=== PATIENT | female | born 1945 | race Caucasian/White ===

== ENCOUNTER 2020-01-03 20:18 | Emergency (ER) | payer MEDICARE, MEDICAID ==
[~2020-01-03] VITALS: Ht 162.6 cm; Wt 73.0 kg
[2020-01-04 14:30] VITALS: BP 137/84
== END 2020-01-04 14:30 | disposition home or self-care (01) ==
LOC: ER 20:18
DX: Z00.00 Encounter for general adult medical examination without abnormal findings (principal); Z59.0 Homelessness; Z86.12 Personal history of poliomyelitis; Z96.649 Presence of unspecified artificial hip joint
CPT/HCPCS: 99283

== ENCOUNTER 2020-01-05 08:26 | Emergency (ER) | payer MEDICARE, MEDICAID ==
[~2020-01-05] VITALS: Ht 157.5 cm; Wt 77.0 kg
[2020-01-05 23:30] VITALS: BP 149/89
== END 2020-01-06 16:40 | disposition home or self-care (01) ==
LOC: ER 10:56
DX: M25.552 Pain in left hip (principal); M25.551 Pain in right hip; G89.29 Other chronic pain; E11.9 Type 2 diabetes mellitus without complications
CPT/HCPCS: 72170; 82962; 99283

== ENCOUNTER 2020-01-06 19:08 | Emergency (ER) | payer MEDICARE, MEDICAID ==
[~2020-01-06] VITALS: Ht 157.5 cm; Wt 78.0 kg
[2020-01-06 19:37] VITALS: BP 150/62
[2020-01-07] MEDS ORDERED: CYCLOBENZAPRINE 10MG TABLET PO ONE
[2020-01-07] MEDS ORDERED: ACETAMINOPHEN 325MG TABLET PO ONE (00:15)
== END 2020-01-07 00:57 | disposition left against medical advice (07) ==
LOC: ER 19:08
DX: M54.2 Cervicalgia (principal); G89.29 Other chronic pain; R03.0 Elevated blood-pressure reading, without diagnosis of hypertension; E03.9 Hypothyroidism, unspecified; E11.9 Type 2 diabetes mellitus without complications; Z95.0 Presence of cardiac pacemaker
CPT/HCPCS: 99283

== ENCOUNTER 2020-01-07 16:22 | Emergency (ER) | payer MEDICARE, MEDICAID ==
[~2020-01-07] VITALS: Ht 157.5 cm; Wt 60.0 kg
[2020-01-09 01:00] VITALS: BP 147/74
== END 2020-01-09 08:58 | disposition home or self-care (01) ==
LOC: ER 16:22
DX: Z60.8 Other problems related to social environment (principal); Z75.1 Person awaiting admission to adequate facility elsewhere
CPT/HCPCS: 99285

== ENCOUNTER 2020-01-09 23:57 | Emergency (ER) | payer MEDICARE, MEDICAID | END 2020-01-10 03:40 | disposition left against medical advice (07) | LOC: ER 23:57 | DX: R51 Headache (principal); Z53.21 Procedure and treatment not carried out due to patient leaving prior to being seen by health care provider ==

== ENCOUNTER 2020-01-11 12:17 | Emergency (ER) | payer MEDICARE, MEDICAID, OTHER ==
[~2020-01-11] VITALS: Ht 157.5 cm; Wt 77.0 kg
[2020-01-11 19:43] LABS: CLARITY URINE CLEAR (CLEAR); COLOR URINE YELLOW (YELLOW); KETONES URINE TRACE (NEGATIVE); LEUKOCYTE ESTERASE URINE NEGATIVE (NEGATIVE); NITRITE URINE NEGATIVE (NEGATIVE); OCCULT BLOOD URINE NEGATIVE (NEGATIVE); PROTEIN URINE NEGATIVE (NEGATIVE); SPECIFIC GRAVITY URINE 1.012 (1.005-1.030); UROBILINOGEN URINE 0.2 E.U./dL (0.2-1.0)
[2020-01-11 20:43] LABS: *AMPHETAMINES SCREEN URINE NEGATIVE (NEGATIVE)
[2020-01-11 20:44] LABS: *BARBITURATES SCREEN URINE NEGATIVE (NEGATIVE); *BENZODIAZEPINES SCREEN URINE NEGATIVE (NEGATIVE); *COCAINE SCREEN URINE NEGATIVE (NEGATIVE); METHADONE URINE SCREEN NEGATIVE (NEGATIVE); OPIATES URINE SCREEN NEGATIVE (NEGATIVE); PHENCYCLIDINE URINE SCREEN NEGATIVE (NEGATIVE)
[2020-01-11 20:45] LABS: CANNABINOID URINE SCREEN NEGATIVE (NEGATIVE)
[2020-01-13] MEDS ORDERED: DOCUSATE SODIUM 100MG CAPSULE PO ONE (17:45)
[2020-01-16 11:30] VITALS: BP 127/67
== END 2020-01-16 12:48 | disposition home or self-care (01) ==
LOC: ER 12:17
DX: R51 Headache (principal); Z59.0 Homelessness; E11.9 Type 2 diabetes mellitus without complications; Z95.0 Presence of cardiac pacemaker; E03.9 Hypothyroidism, unspecified; Z96.649 Presence of unspecified artificial hip joint; Z88.6 Allergy status to analgesic agent; Z88.8 Allergy status to other drugs, medicaments and biological substances; Z88.1 Allergy status to other antibiotic agents
CPT/HCPCS: 71045; 80305; 81003; 82962; 93005; 99285

== ENCOUNTER 2020-01-17 14:21 | Emergency (ER) | payer MEDICARE, MEDICAID, OTHER ==
[~2020-01-17] VITALS: Ht 154.9 cm; Wt 59.0 kg
[2020-01-17] MEDS ORDERED: ACETAMINOPHEN 325MG TABLET PO ONE (19:30)
[2020-01-18 06:31] VITALS: BP 142/80
== END 2020-01-18 07:01 | disposition left against medical advice (07) ==
LOC: ER 14:21
DX: R51 Headache (principal); M54.2 Cervicalgia; Z59.0 Homelessness; E11.9 Type 2 diabetes mellitus without complications; I10 Essential (primary) hypertension; E03.9 Hypothyroidism, unspecified; Z88.1 Allergy status to other antibiotic agents; Z88.6 Allergy status to analgesic agent; Z88.8 Allergy status to other drugs, medicaments and biological substances; Z95.0 Presence of cardiac pacemaker; Z96.649 Presence of unspecified artificial hip joint
CPT/HCPCS: 99283

== ENCOUNTER 2020-01-21 03:44 | Emergency (ER) | payer MEDICARE, MEDICAID ==
[~2020-01-21] VITALS: Ht 154.9 cm; Wt 82.0 kg
[2020-01-21 04:46] VITALS: BP 139/79
== END 2020-01-21 09:06 | disposition left against medical advice (07) ==
LOC: ER 05:23
DX: Z53.21 Procedure and treatment not carried out due to patient leaving prior to being seen by health care provider (principal)

== ENCOUNTER 2020-01-21 23:16 | Emergency (ER) | payer MEDICARE, MEDICAID ==
[~2020-01-21] VITALS: Ht 160 cm; Wt 76.0 kg
[2020-01-22 07:06] VITALS: BP 132/80
== END 2020-01-22 07:07 | disposition home or self-care (01) ==
LOC: ER 23:16
DX: K59.00 Constipation, unspecified (principal); G62.9 Polyneuropathy, unspecified; Z59.0 Homelessness; E11.9 Type 2 diabetes mellitus without complications; I25.10 Atherosclerotic heart disease of native coronary artery without angina pectoris; Z76.0 Encounter for issue of repeat prescription; Z88.1 Allergy status to other antibiotic agents; Z88.8 Allergy status to other drugs, medicaments and biological substances; Z88.6 Allergy status to analgesic agent; Z88.9 Allergy status to unspecified drugs, medicaments and biological substances; Z93.0 Tracheostomy status; Z95.0 Presence of cardiac pacemaker; Z91.013 Allergy to seafood; Z98.890 Other specified postprocedural states
CPT/HCPCS: 99281

== ENCOUNTER 2020-01-22 21:48 | Emergency (ER) | payer MEDICARE, MEDICAID ==
[~2020-01-22] VITALS: Ht 154.9 cm; Wt 77.0 kg
[2020-01-23] MEDS ORDERED: ACETAMINOPHEN 325MG TABLET PO ONE (00:30)
[2020-01-24 06:30] VITALS: BP 135/80
[2020-01-25] MEDS ORDERED: RIVA10TA PO (15:58)
[2020-01-25] MEDS ORDERED: FURO-152 MT (15:58)
[2020-01-25] MEDS ORDERED: GABA-290 MT (15:58)
[2020-01-25] MEDS ORDERED: FOLI-43 MT (15:58)
[2020-01-25] MEDS ORDERED: COLC0.6C3 PO (15:58)
[2020-01-25] MEDS ORDERED: DOCU250C69 PO (15:58)
== END 2020-01-24 15:30 | disposition home or self-care (01) ==
LOC: ER 21:48
DX: G89.29 Other chronic pain (principal); I25.10 Atherosclerotic heart disease of native coronary artery without angina pectoris; E11.9 Type 2 diabetes mellitus without complications; Z88.8 Allergy status to other drugs, medicaments and biological substances; Z88.1 Allergy status to other antibiotic agents; Z88.6 Allergy status to analgesic agent; Z79.899 Other long term (current) drug therapy; Z59.0 Homelessness
CPT/HCPCS: 99283; 99285

== ENCOUNTER 2020-01-24 17:36 | Inpatient (IN) | payer MEDICARE, MEDICAID ==
[~2020-01-24] VITALS: Ht 157.5 cm; Wt 87.1 kg
[2020-01-24] MEDS ORDERED: SODIUM CHLORIDE 0.9% 1,000 ML IV ONE (17:40)
[2020-01-24 18:15] LABS: BASOPHILS % 0.4 % (0.0-2.0); EOSINOPHILS % 1.8 % (0.0-5.0); HEMATOCRIT. 40.6 % (36.0-48.0); HEMOGLOBIN. 13.8 g/dL (12.0-16.0); LYMPHOCYTES % 16.6 % (20.0-50.0); MEAN CORPUSCULAR HEMOGLOBIN 35.2 pg (28.0-32.0); MEAN CORPUSCULAR VOLUME 103.4 fL (81.0-99.0); MONOCYTES % 9.6 % (2.0-8.0); NEUTROPHILS % 71.6 % (40.0-76.0); PLATELET 290 x1000/uL (130-400); RED BLOOD CELL COUNT 3.93 mill/uL (4.2-5.4)
[2020-01-24] MEDS ORDERED: LORAZEPAM 2MG/ML CPJ IM ONE (18:15)
[2020-01-24 18:22] LABS: CHLORIDE 102 mEq/L (98-107)
[2020-01-24 18:23] LABS: CLARITY URINE CLEAR (CLEAR); COLOR URINE YELLOW (YELLOW); INR 0.9; KETONES URINE NEGATIVE (NEGATIVE); LEUKOCYTE ESTERASE URINE NEGATIVE (NEGATIVE); NITRITE URINE NEGATIVE (NEGATIVE); OCCULT BLOOD URINE NEGATIVE (NEGATIVE); PARTIAL THROMBOPLASTIN TIME 23.8 sec (23.4-31.0); PH URINE 6.5 (4.5-8.0); PROTEIN URINE NEGATIVE (NEGATIVE); PROTHROMBIN TIME 10.2 sec (9.6-11.0); SPECIFIC GRAVITY URINE 1.018 (1.005-1.030); UROBILINOGEN URINE 0.2 E.U./dL (0.2-1.0)
[2020-01-24 18:26] LABS: ETHANOL BLOOD < 10 mg/dL
[2020-01-24 18:37] LABS: *AMPHETAMINES SCREEN URINE NEGATIVE (NEGATIVE); *BARBITURATES SCREEN URINE NEGATIVE (NEGATIVE); CANNABINOID URINE SCREEN NEGATIVE (NEGATIVE); METHADONE URINE SCREEN NEGATIVE (NEGATIVE); OPIATES URINE SCREEN NEGATIVE (NEGATIVE); PHENCYCLIDINE URINE SCREEN NEGATIVE (NEGATIVE)
[2020-01-24 18:38] LABS: *BENZODIAZEPINES SCREEN URINE NEGATIVE (NEGATIVE); *COCAINE SCREEN URINE NEGATIVE (NEGATIVE)
[2020-01-25] MEDS ORDERED: LORAZEPAM 2MG/ML CPJ IV PRN (10:00)
[2020-01-25] MEDS ORDERED: ONDANSETRON HCL 4MG/2ML INJ IV PRN (10:00)
[2020-01-25 11:00] VITALS: BP 156/84
[2020-01-25 13:53] VITALS: BP 156/84
[2020-01-25] MEDS: AMLODIPINE 5MG TABLET PO SCH (15:00)
[2020-01-25] MEDS ORDERED: RIVA10TA PO (15:58)
[2020-01-25] MEDS ORDERED: FURO-152 MT (15:58)
[2020-01-25] MEDS ORDERED: DOCU250C69 PO (15:58)
[2020-01-25] MEDS ORDERED: GABA-290 MT (15:58)
[2020-01-25] MEDS ORDERED: FOLI-43 MT (15:58)
[2020-01-25] MEDS ORDERED: COLC0.6C3 PO (15:58)
[2020-01-25] MEDS: GABAPENTIN 300MG CAPSULE PO SCH (17:00)
[2020-01-25] MEDS: ENOXAPARIN 30MG/0.3ML SYR SUBCUT SCH (17:00)
[2020-01-25] MEDS ORDERED: MEDICATION NOT ON FORMULARY EA (Gabapentin 1 TAB) MT SCH (17:00)
[2020-01-25] MEDS ORDERED: RIVAROXABAN 10 MG TABLET PO SCH (17:00)
[2020-01-25 20:00] VITALS: BP 127/59
[2020-01-25] MEDS ORDERED: MEDICATION NOT ON FORMULARY EA (Colchicine 0.6 MG) PO SCH (21:00)
[2020-01-25] MEDS: COLCHICINE 0.6MG TABLET PO SCH (21:03)
[2020-01-25] MEDS: ACETAMINOPHEN 325MG TABLET PO PRN (21:09)
[2020-01-26] VITALS: BP 112/59
[2020-01-26] MEDS: AMLODIPINE 5MG TABLET PO SCH ×3 (00:43→21:00)
[2020-01-26] MEDS: LEVOTHYROXINE SODIUM 50MCG TABLET PO SCH ×2 (05:47→06:02)
[2020-01-26 07:59] VITALS: BP 122/78
[2020-01-26] MEDS: GABAPENTIN 300MG CAPSULE PO SCH ×3 (09:00→17:00)
[2020-01-26] MEDS: FUROSEMIDE 20MG TABLET PO SCH ×2 (09:00→10:11)
[2020-01-26] MEDS: FOLIC ACID 1MG TABLET PO SCH (10:11)
[2020-01-26] MEDS: DOCUSATE SODIUM 250MG CAPSULE PO SCH (10:13)
[2020-01-26] MEDS ORDERED: LEVO75TA7 MT (12:02)
[2020-01-26 16:33] VITALS: BP 110/51
[2020-01-26] MEDS: ENOXAPARIN 30MG/0.3ML SYR SUBCUT SCH (17:00)
[2020-01-26] MEDS: COLCHICINE 0.6MG TABLET PO SCH (21:00)
[2020-01-26] MEDS: ACETAMINOPHEN 325MG TABLET PO PRN (22:18)
[2020-01-27] MEDS: LEVOTHYROXINE SODIUM 50MCG TABLET PO SCH (06:52)
[2020-01-27] MEDS: GABAPENTIN 300MG CAPSULE PO SCH ×2 (09:00→17:00)
[2020-01-27] MEDS: DOCUSATE SODIUM 250MG CAPSULE PO SCH (09:00)
[2020-01-27] MEDS: AMLODIPINE 5MG TABLET PO SCH ×2 (09:00→21:00)
[2020-01-27] MEDS ORDERED: ENOXAPARIN 40MG/0.4ML SYR SUBCUT SCH (09:00)
[2020-01-27 12:00] VITALS: BP 161/91
[2020-01-27] MEDS: FOLIC ACID 1MG TABLET PO SCH (12:12)
[2020-01-27] MEDS: FUROSEMIDE 20MG TABLET PO SCH (12:13)
[2020-01-27 15:55] VITALS: BP 133/85
[2020-01-27] MEDS: ENOXAPARIN 30MG/0.3ML SYR SUBCUT SCH (17:00)
[2020-01-27] MEDS: ACETAMINOPHEN 325MG TABLET PO PRN ×2 (17:54→23:57)
[2020-01-27 20:11] VITALS: BP 129/68
[2020-01-27] MEDS: COLCHICINE 0.6MG TABLET PO SCH (21:00)
[2020-01-28 04:00] VITALS: BP 138/72
[2020-01-28] MEDS: LEVOTHYROXINE SODIUM 50MCG TABLET PO SCH (06:26)
[2020-01-28] MEDS: AMLODIPINE 5MG TABLET PO SCH ×2 (09:00→22:28)
[2020-01-28] MEDS: DOCUSATE SODIUM 250MG CAPSULE PO SCH (09:00)
[2020-01-28] MEDS: GABAPENTIN 300MG CAPSULE PO SCH ×2 (09:06→17:00)
[2020-01-28] MEDS: FOLIC ACID 1MG TABLET PO SCH (09:06)
[2020-01-28] MEDS: FUROSEMIDE 20MG TABLET PO SCH (09:06)
[2020-01-28 12:00] VITALS: BP 137/81
[2020-01-28 16:00] VITALS: BP 125/68
[2020-01-28] MEDS: ENOXAPARIN 30MG/0.3ML SYR SUBCUT SCH (17:00)
[2020-01-28] MEDS: ACETAMINOPHEN 325MG TABLET PO PRN (18:14)
[2020-01-28 20:00] VITALS: BP 127/74
[2020-01-28] MEDS: COLCHICINE 0.6MG TABLET PO SCH ×2 (22:28→22:30)
[2020-01-29] MEDS: LEVOTHYROXINE SODIUM 75MCG TABLET PO SCH (07:00)
[2020-01-29] MEDS: GABAPENTIN 300MG CAPSULE PO SCH (09:00)
[2020-01-29] MEDS: FOLIC ACID 1MG TABLET PO SCH (09:00)
[2020-01-29] MEDS: FUROSEMIDE 20MG TABLET PO SCH (09:00)
[2020-01-29] MEDS: DOCUSATE SODIUM 250MG CAPSULE PO SCH (09:00)
[2020-01-29] MEDS: AMLODIPINE 5MG TABLET PO SCH ×2 (09:00→21:00)
[2020-01-29 13:39] VITALS: BP 133/67
[2020-01-29 15:31] VITALS: BP 133/61
[2020-01-29 20:00] VITALS: BP 130/78
[2020-01-30] MEDS: LEVOTHYROXINE SODIUM 75MCG TABLET PO SCH (06:52)
[2020-01-30 08:00] VITALS: BP 125/64
[2020-01-30] MEDS: FOLIC ACID 1MG TABLET PO SCH (09:00)
[2020-01-30] MEDS: AMLODIPINE 5MG TABLET PO SCH (09:00)
[2020-01-30] MEDS: FUROSEMIDE 20MG TABLET PO SCH (09:00)
[2020-01-30] MEDS: DOCUSATE SODIUM 250MG CAPSULE PO SCH (09:00)
[2020-01-30] MEDS: GABAPENTIN 300MG CAPSULE PO SCH (09:00)
[2020-01-30 16:00] VITALS: BP 146/78
== END 2020-01-30 17:15 | disposition home or self-care (01) | DRG 683 ==
LOC: ER 17:36 → 6WST 21:59 → EDBEDREQ 22:06 → EDBEDREQTM 22:06 → ENRESERV 01-25 08:54 → 6WST 01-25 11:04
PROVIDERS: ADMIT Internal Medicine; ATTEND Internal Medicine
DX: N17.0 Acute kidney failure with tubular necrosis (principal); J98.19 Other pulmonary collapse; E66.9 Obesity, unspecified; E11.9 Type 2 diabetes mellitus without complications; I10 Essential (primary) hypertension; I25.10 Atherosclerotic heart disease of native coronary artery without angina pectoris; I25.5 Ischemic cardiomyopathy; M19.90 Unspecified osteoarthritis, unspecified site; E03.9 Hypothyroidism, unspecified; Z53.20 Procedure and treatment not carried out because of patient's decision for unspecified reasons; R51 Headache; Z96.649 Presence of unspecified artificial hip joint; I25.2 Old myocardial infarction; Z93.0 Tracheostomy status; Z95.0 Presence of cardiac pacemaker; Z86.73 Personal history of transient ischemic attack (TIA), and cerebral infarction without residual deficits; Z91.19 Patient's noncompliance with other medical treatment and regimen; Z68.35 Body mass index [BMI] 35.0-35.9, adult; Z95.5 Presence of coronary angioplasty implant and graft; Z79.899 Other long term (current) drug therapy
CPT/HCPCS: 36415; 71045; 80053; 80305; 80320; 81003; 83880; 84484; 85025; 93005; 96372; 97161; 97166; 99285; J2060; J7030; G0480

== ENCOUNTER 2020-01-30 19:50 | Emergency (ER) | payer MEDICARE, MEDICAID ==
[~2020-01-30] VITALS: Ht 154.9 cm; Wt 78.0 kg
[~2020-01-30 19:50] MED LIST: COLC0.6C3 PO; DOCU250C69 PO; FOLI-43 MT; FURO-152 MT; GABA-290 MT; LEVO75TA7 MT
[2020-01-30 20:37] VITALS: BP 172/100
[2020-01-31] MEDS ORDERED: ACETAMINOPHEN 325MG TABLET PO ONE (03:45)
== END 2020-01-31 11:14 | disposition home or self-care (01) ==
LOC: ER 19:50
DX: Z59.0 Homelessness (principal); G89.29 Other chronic pain; E03.9 Hypothyroidism, unspecified; Z88.1 Allergy status to other antibiotic agents; Z88.3 Allergy status to other anti-infective agents; Z88.6 Allergy status to analgesic agent; Z88.8 Allergy status to other drugs, medicaments and biological substances; Z86.12 Personal history of poliomyelitis; Z98.890 Other specified postprocedural states
CPT/HCPCS: 99282

== ENCOUNTER 2020-03-12 15:47 | Emergency (ER) | payer MEDICARE, MEDICAID ==
[~2020-03-12] VITALS: Ht 160 cm; Wt 82.0 kg
[2020-03-12] MEDS ORDERED: ACETAMINOPHEN 325MG TABLET PO ONE (19:45)
[2020-03-14 10:53] LABS: CHLORIDE 103 mEq/L (98-107)
[2020-03-14 11:08] LABS: BASOPHILS % 0.5 % (0.0-2.0); EOSINOPHILS % 1.8 % (0.0-5.0); HEMATOCRIT. 38.8 % (36.0-48.0); HEMOGLOBIN. 13.4 g/dL (12.0-16.0); LYMPHOCYTES % 15.4 % (20.0-50.0); MEAN CORPUSCULAR HEMOGLOBIN 36.3 pg (28.0-32.0); MEAN CORPUSCULAR VOLUME 104.8 fL (81.0-99.0); MEAN PLATELET VOLUME 8.1 fl (7.4-10.4); NEUTROPHILS % 76.3 % (40.0-76.0); PLATELET 278 x1000/uL (130-400); RED CELL DISTRIBUTION WIDTH 14.4 % (11.6-14.6)
[2020-03-14 17:17] LABS: CLARITY URINE CLEAR (CLEAR); COLOR URINE YELLOW (YELLOW); KETONES URINE NEGATIVE (NEGATIVE); LEUKOCYTE ESTERASE URINE TRACE (NEGATIVE); NITRITE URINE POSITIVE (NEGATIVE); OCCULT BLOOD URINE NEGATIVE (NEGATIVE); PROTEIN URINE NEGATIVE (NEGATIVE); SPECIFIC GRAVITY URINE 1.024 (1.005-1.030)
[2020-03-14 20:23] VITALS: BP 110/54
[2020-03-14] MEDS ORDERED: AMLODIPINE 5MG TABLET PO ONE (20:45)
[2020-03-14] MEDS ORDERED: NITROFURANTOIN 100MG M/M CAPSULE PO SCH (21:00)
== END 2020-03-14 20:59 ==
LOC: ER 15:47
DX: G89.29 Other chronic pain (principal); M25.552 Pain in left hip; I11.9 Hypertensive heart disease without heart failure; E11.9 Type 2 diabetes mellitus without complications; Z96.643 Presence of artificial hip joint, bilateral; Z86.12 Personal history of poliomyelitis; Z86.73 Personal history of transient ischemic attack (TIA), and cerebral infarction without residual deficits; Z90.89 Acquired absence of other organs; Z98.890 Other specified postprocedural states; Z99.3 Dependence on wheelchair; Z95.0 Presence of cardiac pacemaker; Z88.3 Allergy status to other anti-infective agents; Z88.8 Allergy status to other drugs, medicaments and biological substances
CPT/HCPCS: 36415; 73502; 80053; 81003; 82962; 85025; 99285